=== PATIENT | female | born 1985 | race Caucasian/White ===

== ENCOUNTER 2025-03-04 11:59 | Inpatient (IN) | payer SELFPAY ==
[~2025-03-04] VITALS: Ht 160 cm; Wt 76.2 kg
[2025-03-04] MEDS: FAMOTIDINE 20MG/2ML VIAL IV ONE (13:42)
[2025-03-04] MEDS: EPINEPHRINE 1:1000 1 MG/ML AMP IM ONE (13:42)
[2025-03-04] MEDS: DIPHENHYDRAMINE 50MG/ML VIAL IV ONE (13:43)
[2025-03-04] MEDS: DEXAMETHASONE 10 MG/ML VIAL IV ONE (13:43)
[2025-03-04 14:59] LABS: ADD RBC MORPHOLOGY YES; BASOPHILS % 0.5 % (0.0-2.0); EOSINOPHILS % 0.9 % (0.0-5.0); HEMATOCRIT. 35.4 % (36.0-48.0); HEMOGLOBIN. 11.3 g/dL (12.0-16.0); LYMPHOCYTES % 24.0 % (20.0-50.0); MEAN PLATELET VOLUME 6.8 fl (7.4-10.4); MONOCYTES % 5.9 % (2.0-8.0); NEUTROPHILS % 68.7 % (40.0-76.0); PLATELET 296 x1000/uL (130-400); RED BLOOD CELL COUNT 3.84 mill/uL (4.2-5.4); RED CELL DISTRIBUTION WIDTH 23.3 % (11.6-14.6)
[2025-03-04 15:11] LABS: TROPONIN I HIGH SENSITIVITY < 4 ng/L (3.0-34)
[2025-03-04 15:15] LABS: PLATELET ESTIMATE NORMAL
[2025-03-04 15:28] LABS: CREATININE 0.8 mg/dL (0.6-1.0)
[2025-03-04 15:29] LABS: UREA NITROGEN BLOOD < 5 mg/dL (9-23)
[2025-03-04 15:40] LABS: HCG SCREEN NEGATIVE
[2025-03-04] MEDS: ONDANSETRON 4MG ODT PO ONE (16:28)
[2025-03-04] MEDS: ACETAMINOPHEN 325MG TABLET PO ONE (16:28)
[2025-03-04] MEDS: KETOROLAC 15MG/ML VIAL IV ONE (16:38)
[2025-03-04] MEDS: MORPHINE SULFATE 4 MG/ML INJ (FOR IV/IM USE) IV ONE (17:29)
[2025-03-04] MEDS: IPRATROPIUM/ALBUTEROL 0.5-3(2.5)MG/3ML NEB HHN ONE (17:57)
[2025-03-04 18:09] VITALS: PULSE 88; RESP 20; O2SAT 98
[2025-03-04 18:10] LABS: CLARITY URINE CLOUDY (CLEAR); COLOR URINE YELLOW (YELLOW); GLUCOSE URINE NEGATIVE (NEGATIVE); KETONES URINE NEGATIVE (NEGATIVE); LEUKOCYTE ESTERASE URINE 2+ (NEGATIVE); NITRITE URINE NEGATIVE (NEGATIVE); OCCULT BLOOD URINE 3+ (NEGATIVE); PH URINE 8.5 (4.5-8.0); PROTEIN URINE NEGATIVE (NEGATIVE); SPECIFIC GRAVITY URINE 1.034 (1.005-1.030); UROBILINOGEN URINE 0.2 E.U./dL (0.2-1.0)
[2025-03-04] MEDS: LEVETIRACETAM 500MG TABLET PO ONE (18:14)
[2025-03-04 18:45] LABS: BACTERIA URINE TRACE; RBC URINE 0-2 /hpf (0-2); SQUAMOUS EPITHELIAL CELL URINE FEW /lpf (RARE/1+)
[2025-03-04 18:49] VITALS: BP 111/74; PULSE 91; RESP 20; TEMP 36.7; O2SAT 100
[2025-03-04 20:00] VITALS: BP 93/58; PULSE 82; RESP 18; TEMP 36.7; O2SAT 98
[2025-03-04] MEDS: LORAZEPAM 2MG/ML UD SYRINGE IV SCH (20:46)
[2025-03-04] MEDS ORDERED: IPRATROPIUM/ALBUTEROL 0.5-3(2.5)MG/3ML NEB HHN PRN (21:00)
[2025-03-04] MEDS ORDERED: ONDANSETRON HCL 4MG/2ML INJ IV PRN (21:00)
[2025-03-04] MEDS ORDERED: MAGNESIUM/ALUMINUM HYDROXIDE/SIMETHICONE 30ML UDC PO PRN (21:00)
[2025-03-04] MEDS ORDERED: DOCUSATE SODIUM 100MG CAPSULE PO PRN (21:00)
[2025-03-04] MEDS ORDERED: GUAIFENESIN 200MG/10ML SUGAR FREE UDC PO PRN (21:00)
[2025-03-04] MEDS: APIXABAN 5 MG TABLET PO SCH (21:50)
[2025-03-04] MEDS ORDERED: IOHEXOL-300 100 ML BOTTLE ONE (22:35)
[2025-03-04 22:40] VITALS: BP 93/58; PULSE 82; RESP 18; TEMP 36.696
[2025-03-05] VITALS: BP 129/72; PULSE 81; RESP 18; TEMP 36.6; O2SAT 100
[2025-03-05] MEDS ORDERED: ACETAMINOPHEN 325MG TABLET PO PRN
[2025-03-05 04:00] VITALS: BP 111/55; PULSE 81; RESP 18; TEMP 36.6; O2SAT 99
[2025-03-05] MEDS: MORPHINE SULFATE 4 MG/ML INJ (FOR IV/IM USE) IV PRN (05:05)
[2025-03-05] MEDS ORDERED: LORAZEPAM 2MG/ML UD SYRINGE ONE (06:31)
[2025-03-05] MEDS ORDERED: LORAZEPAM 2MG/ML UD SYRINGE IV PRN (07:00)
[2025-03-05] MEDS: LEVETIRACETAM 1000MG PREMIX 100 ML IV SCH (07:02)
[2025-03-05 08:00] VITALS: BP 105/64; PULSE 78; RESP 18; TEMP 36.7; O2SAT 99
[2025-03-05 08:11] LABS: BASOPHILS % 0.1 % (0.0-2.0); EOSINOPHILS % 0.0 % (0.0-5.0); HEMATOCRIT. 33.7 % (36.0-48.0); HEMOGLOBIN. 10.9 g/dL (12.0-16.0); LYMPHOCYTES % 10.3 % (20.0-50.0); MEAN PLATELET VOLUME 7.2 fl (7.4-10.4); MONOCYTES % 4.3 % (2.0-8.0); NEUTROPHILS % 85.3 % (40.0-76.0); PLATELET 365 x1000/uL (130-400); RED BLOOD CELL COUNT 3.74 mill/uL (4.2-5.4); RED CELL DISTRIBUTION WIDTH 22.8 % (11.6-14.6)
[2025-03-05 08:29] LABS: CREATININE 0.7 mg/dL (0.6-1.0); UREA NITROGEN BLOOD 10 mg/dL (9-23)
[2025-03-05] MEDS ORDERED: LEVETIRACETAM 1000MG PREMIX 100 ML IV SCH (09:00)
[2025-03-05] MEDS ORDERED: LEVETIRACETAM 500MG in NACL 100ML PREMIX IV SCH (09:00)
[2025-03-05] MEDS ORDERED: LEVETIRACETAM 500MG PREMIX 100ML IV SCH (09:00)
[2025-03-05] MEDS ORDERED: LEVETIRACETAM 1,000MG in NACL 100ML PREMIX IV SCH (09:00)
[2025-03-05] MEDS: FAMOTIDINE 20MG/2ML VIAL IV SCH (09:02)
== END 2025-03-05 13:00 | disposition left against medical advice (07) | DRG 530 ==
LOC: ER 11:59 → EDBEDREQ 17:37 → EDBEDREQTM 17:37 → 8WST 18:24
PROVIDERS: ADMIT Internal Medicine; ATTEND Internal Medicine
DX: C56.2 Malignant neoplasm of left ovary (principal); I82.622 Acute embolism and thrombosis of deep veins of left upper extremity; D64.9 Anemia, unspecified; G40.909 Epilepsy, unspecified, not intractable, without status epilepticus; Z53.29 Procedure and treatment not carried out because of patient's decision for other reasons; Z85.43 Personal history of malignant neoplasm of ovary; Z86.718 Personal history of other venous thrombosis and embolism; Z90.49 Acquired absence of other specified parts of digestive tract; Z90.721 Acquired absence of ovaries, unilateral; Z98.1 Arthrodesis status
CPT/HCPCS: 36415; 71045; 71275; 74176; 80048; 81003; 83880; 84484; 84703; 85025; 85379; 93005; 96374; 96375; 99285; A4606; J1100; J1200; J1308; J1885; J1953; J2060; J2270; J3490; Q0162; Q9967